=== PATIENT | male | born 1995 | race Caucasian/White ===

== ENCOUNTER 2018-07-07 09:04 | Outpatient (CLI) | payer BC ==
--- NOTE | 2018-07-07 10:14 | ULT ---
ULTRASOUND ABDOMEN: HISTORY: Abdominal pain. FINDINGS: The liver, gallbladder, spleen, kidneys, and visualized portions of the aorta and IVC appear normal. The pancreas is not satisfactorily visualized due to overlying bowel gas. The common duct measures 3 mm in diameter. No free fluid is seen. IMPRESSION: Poor visualization of the pancreas; otherwise, unremarkable exam. POS: [facility]
== END 2018-07-07 09:05 | disposition home or self-care (01) ==
LOC: SCSULT 09:04
PROVIDERS: ATTEND Internal Medicine
DX: K30 Functional dyspepsia (principal); R10.9 Unspecified abdominal pain
CPT/HCPCS: 76700